=== PATIENT | female | born 1965 | race African-American/Black ===

== ENCOUNTER 2019-02-13 06:01 | Emergency (ER) | payer OTHER ==
[~2019-02-13] VITALS: Ht 165.1 cm; Wt 88.5 kg
[2019-02-13 06:05] VITALS: BP 151/72
[2019-02-13 06:59] LABS: BILIRUBIN,URINE NEGATIVE (NEG); CLARITY,URINE CLEAR; COLOR,URINE YELLOW; NITRITE,URINE NEGATIVE (NEG); PROTEIN,URINE NEGATIVE (NEG-TRACE); UROBILINOGEN,URINE 0.2 mg/dL (0.2 mg/dL)
[2019-02-13 07:01] LABS: BARBITURATES NEG (NEG); BENZODIAZEPINES NEG (NEG); CANNABINOIDS NEG (NEG); COCAINE NEG (NEG); METHADONE NEG (NEG); OPIATES NEG (NEG); PHENCYCLIDINE NEG (NEG)
[2019-02-13 07:02] LABS: BACTERIA,URINE FEW /HPF (0-FEW); RBC,URINE OCC /HPF (0-2); SQUAMOUS EPITHELIAL CELL,UR MOD /LPF; WBC,URINE RARE /HPF (0-4)
[2019-02-13 07:03] LABS: AMPHETAMINE/METHAMPHETAMINE NEG (NEG)
[2019-02-13 07:22] LABS: BASO % 1 % (0-3); EOS # 0.1 x10^3/uL (0.0-0.7); EOS % 2 % (0-3); HEMATOCRIT 36.7 % (36.0-47.0); HEMOGLOBIN 12.1 g/dL (12.0-15.5); LYMPH # 1.5 x10^3/uL (1.0-4.8); LYMPH % 32 % (24-48); MEAN CORPUSCULAR HEMOGLOBIN 29 pg (25-35); MEAN CORPUSCULAR HGB CONC 33 g/dL (31-37); MEAN CORPUSCULAR VOLUME 89 fL (79-100); MONO # 0.5 x10^3/uL (0.0-1.1); MONO % 11 % (0-9); NEUT # 2.6 x10^3uL (1.8-7.7); NEUT % 54 % (31-73); PLATELET COUNT 220 x10^3/uL (140-400); RED CELL DISTRIBUTION WIDTH 15.7 % (11.5-14.5); WHITE BLOOD COUNT 4.8 x10^3/uL (4.0-11.0)
[2019-02-13 07:37] LABS: CALCIUM 8.8 mg/dL (8.5-10.1); CREATININE 0.9 mg/dL (0.6-1.0); GFR 79.3; POTASSIUM 3.9 mmol/L (3.5-5.1)
[2019-02-13 07:43] LABS: ALBUMIN 3.2 g/dL (3.4-5.0); ALBUMIN/GLOBULIN RATIO 0.8 (1.0-1.7); TOTAL BILIRUBIN 0.2 mg/dL (0.2-1.0); TOTAL PROTEIN 7.1 g/dL (6.4-8.2)
[2019-02-13 07:53] LABS: VAL ACID 38 mcg/mL (50-100)
--- NOTE | 2019-02-13 07:54 | PHYS DOC ---
Past Medical History Past Medical History: Anxiety, Bipolar Additional Past Medical Histor: SCHIZOAFFECTIVE, HALLUCINATIONS, PSYCHOTIC DISORDER Past Surgical History: No Surgical History Additional Past Surgical Histo: UNKNOWN Alcohol Use: None Drug Use: None Adult General Chief Complaint Chief Complaint: PSYCH EVALUATION HPI HPI Patient is a 54 year old female with history of schizoaffective, bipolar and psychotic disorder who presents from local nursing with recurrent reported aggressive behavior disorder. Patient reportedly spitting at staff and knocking himself echavarria. Patient states she was upset that she was not giving her coffee and feels as though she is not been giving her current medications. Staff members confirm that the patient's been given all her medications as scheduled. No reported HI, SI. Patient does complain of right ankle pain and low back pain. Denies falls or injuries. Denies medical complaints.] Review of Systems Review of Systems Constitutional: Denies fever or chills [] Eyes: Denies change in visual acuity, redness, or eye pain [] HENT: Denies nasal congestion or sore throat [] Respiratory: Denies cough or shortness of breath [] Cardiovascular: No additional information not addressed in HPI [] GI: Denies abdominal pain, nausea, vomiting, bloody stools or diarrhea [] : Denies dysuria or hematuria [] Musculoskeletal: Denies back pain or joint pain [] Integument: Denies rash or skin lesions [] Neurologic: Denies headache, focal weakness or sensory changes [] Endocrine: Denies polyuria or polydipsia [] All other systems were reviewed and found to be within normal limits, except as documented in this note. Allergies Allergies Allergies Coded Allergies Type Severity Reaction Last Updated Verified benztropine Allergy Intermediate 02/13/19 Yes haloperidol Allergy Intermediate 02/13/19 Yes lithium Allergy Intermediate 02/13/19 Yes Physical Exam Physical Exam Constitutional: Well developed, well nourished, no acute distress, non-toxic appearance. [] HENT: Normocephalic, atraumatic, bilateral external ears normal, oropharynx moist, no oral exudates, nose normal. [] Eyes: PERRLA, EOMI, conjunctiva normal, no discharge. [] Neck: Normal range of motion, no tenderness, supple, no stridor. [] Cardiovascular:Heart rate regular rhythm, no murmur [] Lungs & Thorax: Bilateral breath sounds clear to auscultation [] Abdomen: Bowel sounds normal, soft, no tenderness, no masses, no pulsatile masses. [] Skin: Warm, dry, no erythema, no rash. [] Back: No tenderness, no CVA tenderness. [] Extremities: No tenderness, no cyanosis, no clubbing, ROM intact, no edema. [] Neurologic: Alert and oriented X 3, normal motor function, normal sensory function, no focal deficits noted. [] Psychologic: Affect, flat. No SI/HI. [] Current Patient Data Vital Signs Vital Signs Date Time Temp Pulse Resp B/P (MAP) Pulse Ox O2 Delivery O2 Flow Rate FiO2 02/13/19 06:05 98.5 81 16 151/72 (98) 99 Room Air 98.5 Lab Values Laboratory Tests Test 02/13/19 06:10 02/13/19 07:10 Urine Collection Type Unknown Urine Color Yellow Urine Clarity Clear Urine pH 6.0 Urine Specific [place] 1.010 Urine Protein Negative mg/dL (NEG-TRACE) Urine Glucose (UA) Negative mg/dL (NEG) Urine Ketones (Stick) Negative mg/dL (NEG) Urine Blood Negative (NEG) Urine Nitrite Negative (NEG) Urine Bilirubin Negative (NEG) Urine Urobilinogen Dipstick 0.2 mg/dL (0.2 mg/dL) Urine Leukocyte Esterase Negative (NEG) Urine RBC Occ /HPF (0-2) Urine WBC Rare /HPF (0-4) Urine Squamous Epithelial Cells Mod /LPF Urine Bacteria Few /HPF (0-FEW) Urine Mucus Slight /LPF Urine Opiates Screen Neg (NEG) Urine Methadone Screen Neg (NEG) Urine Barbiturates Neg (NEG) Urine Phencyclidine Screen Neg (NEG) Urine Amphetamine/Methamphetamine Neg (NEG) Urine Benzodiazepines Screen Neg (NEG) Urine Cocaine Screen Neg (NEG) Urine Cannabinoids Screen Neg (NEG) Urine Ethyl Alcohol Neg (NEG) White Blood Count 4.8 x10^3/uL (4.0-11.0) Red Blood Count 4.10 x10^6/uL (3.50-5.40) Hemoglobin 12.1 g/dL (12.0-15.5) Hematocrit 36.7 % (36.0-47.0) Mean Corpuscular Volume 89 fL (79-100) Mean Corpuscular Hemoglobin 29 pg (25-35) Mean Corpuscular Hemoglobin Concent 33 g/dL (31-37) Red Cell Distribution Width 15.7 % (11.5-14.5) H Platelet Count 220 x10^3/uL (140-400) Neutrophils (%) (Auto) 54 % (31-73) Lymphocytes (%) (Auto) 32 % (24-48) Monocytes (%) (Auto) 11 % (0-9) H Eosinophils (%) (Auto) 2 % (0-3) Basophils (%) (Auto) 1 % (0-3) Neutrophils # (Auto) 2.6 x10^3uL (1.8-7.7) Lymphocytes # (Auto) 1.5 x10^3/uL (1.0-4.8) Monocytes # (Auto) 0.5 x10^3/uL (0.0-1.1) Eosinophils # (Auto) 0.1 x10^3/uL (0.0-0.7) Basophils # (Auto) 0.0 x10^3/uL (0.0-0.2) Sodium Level 137 mmol/L (136-145) Potassium Level 3.9 mmol/L (3.5-5.1) Chloride Level 102 mmol/L (98-107) Carbon Dioxide Level 30 mmol/L (21-32) Anion Gap 5 (6-14) L Blood Urea Nitrogen 9 mg/dL (7-20) Creatinine 0.9 mg/dL (0.6-1.0) Estimated GFR (Cockcroft-Gault) 79.3 BUN/Creatinine Ratio 10 (6-20) Glucose Level 91 mg/dL (70-99) Calcium Level 8.8 mg/dL (8.5-10.1) Total Bilirubin 0.2 mg/dL (0.2-1.0) Aspartate Amino Transferase (AST) 11 U/L (15-37) L Alanine Aminotransferase (ALT) 10 U/L (14-59) L Alkaline Phosphatase 45 U/L (46-116) L Total Protein 7.1 g/dL (6.4-8.2) Albumin 3.2 g/dL (3.4-5.0) L Albumin/Globulin Ratio 0.8 (1.0-1.7) L Thyroid Stimulating Hormone (TSH) 3.329 uIU/mL (0.358-3.74) Valproic Acid Level 38 mcg/mL (50-100) L Valproic Acid Last Dose Date 02/12/19 Valproic Acid Last Dose Time 1300 Ethyl Alcohol Level < 10 mg/dL (0-10) Laboratory Tests 02/13/19 07:10 Laboratory Tests 02/13/19 07:10 EKG EKG [] Radiology/Procedures Radiology/Procedures [] Course & Med Decision Making Course & Med Decision Making Pertinent Labs and Imaging studies reviewed. (See chart for details) [Patient oriented �3 and mostly cooperative with care provided emergency room. History of chronic psychosis. Compliant with medications. Patient is her own guardian and external medical decisions. She declines further evaluation in the ED. Will return to nursing care facility with recommendations of following with PCP and/or psychiatrist for further evaluation. ] Dragon Disclaimer Dragon Disclaimer This electronic medical record was generated, in whole or in part, using a voice recognition dictation system. Departure Departure Impression: Primary Impression: Encounter for medical screening examination Additional Impression: Behavior concern in adult Condition: STABLE Referrals: CONCHITA NORIEGA (PCP) Additional Instructions: Please follow up with your local PCP and or psychiatrist for further evaluation. Problem Qualifiers CRISTINA HARDING DO Feb 13, 2019 07:54
== END 2019-02-13 09:01 | disposition home or self-care (01) ==
LOC: ER 06:01
DX: F91.8 Other conduct disorders (principal); Z00.00 Encounter for general adult medical examination without abnormal findings; F31.9 Bipolar disorder, unspecified; F41.9 Anxiety disorder, unspecified; F25.9 Schizoaffective disorder, unspecified; Z88.8 Allergy status to other drugs, medicaments and biological substances
CPT/HCPCS: 36415; 80053; 80164; 80175; 80307; 81001; 84443; 85025; 99284; G0480